=== PATIENT | male | born 2000 | race Caucasian/White ===

== ENCOUNTER 2021-03-21 21:25 | Emergency (ER) | payer SELFPAY | END 2021-03-21 21:35 | disposition left against medical advice (07) | LOC: ER1 21:25 | DX: R21 Rash and other nonspecific skin eruption (principal); Z88.8 Allergy status to other drugs, medicaments and biological substances | CPT/HCPCS: 99282 ==

== ENCOUNTER 2022-04-10 16:25 | Emergency (ER) | payer OTHER ==
[2022-04-10 17:11] LABS: HEMOGLOBIN 17.3 gm/dl (14.0-17.5); RED BLOOD COUNT 5.52 M/UL (4.20-5.50); WHITE BLOOD COUNT 8.8 K/UL (4.5-11.0)
[2022-04-10 17:43] LABS: BUN/CREATININE RATIO 16 (0-10)
[2022-04-10] MEDS ORDERED: PREDNISONE 20 M20 MG PO (19:42)
[2022-04-10] MEDS ORDERED: PROAIR HFA8.5 GM INH (19:43)
== END 2022-04-10 20:15 | disposition home or self-care (01) ==
LOC: ER1 16:25
DX: J45.909 Unspecified asthma, uncomplicated (principal); Z20.822 Contact with and (suspected) exposure to COVID-19
CPT/HCPCS: 0240U; 71045; 80053; 82550; 82553; 83605; 84484; 85025; 93005; 94664; 94760; 96372; 99285; J1100